=== PATIENT | female | born 1965 | race Hispanic/Latino ===

== ENCOUNTER → 2023-03-26 | Day surgery (SDC) | payer OTHER ==
[~2023-03-26] MED LIST: FAMOTIDINE20 MG PO; FENTANYL CITRATE/PF 100MCG/2 ML INJ ONE; GLUCAGON FOR INJ 1 MG VIAL ONE; HYOSCYAMINE SULFATE 0.5 MG/ML INJ ONE; KETAMINE HCL INJ 50 MG/ML 10 ML VIAL ONE; LACTATED RINGER'S 1,000 ML ONE; LIDOCAINE HCL 2% LOCAL INJ 5 ML SDV VIAL INJ ONE; METOCLOPRAMIDE HCL 10 MG/2ML VIAL ONE; OMEPRAZOLE40 MG PO; PROPOFOL IV EMULSION 10 MG/ML 20 ML VIAL ONE; PROPOFOL IV EMULSION 50 ML IV ONE
[2023-03-26 11:50] VITALS: TEMP 97.8
[2023-03-26 12:10] VITALS: BP 127/82; PULSE 60; RESP 18; O2SAT 99
== END | disposition home or self-care (01) ==
LOC: OR 08:04
PROVIDERS: ATTEND Internal Medicine Gastroenterology
DX: K29.60 Other gastritis without bleeding (principal); D12.2 Benign neoplasm of ascending colon; D12.3 Benign neoplasm of transverse colon; D12.5 Benign neoplasm of sigmoid colon; K62.1 Rectal polyp; K31.7 Polyp of stomach and duodenum; K29.50 Unspecified chronic gastritis without bleeding; K29.80 Duodenitis without bleeding; K20.90 Esophagitis, unspecified without bleeding; K59.09 Other constipation; D72.820 Lymphocytosis (symptomatic); R09.89 Other specified symptoms and signs involving the circulatory and respiratory systems; K44.9 Diaphragmatic hernia without obstruction or gangrene; K21.9 Gastro-esophageal reflux disease without esophagitis; K57.30 Diverticulosis of large intestine without perforation or abscess without bleeding; K64.8 Other hemorrhoids; Z71.3 Dietary counseling and surveillance; D64.9 Anemia, unspecified; Z68.30 Body mass index [BMI] 30.0-30.9, adult
CPT/HCPCS: 43239; 45380; 45385; 93005; C9113; J1610; J1980; J2001; J2704 ×2; J2765; J3010; J7121; 45378